=== PATIENT | male | born 1940 | race Caucasian/White ===

== ENCOUNTER 2020-07-22 12:00 | Emergency (ER) | payer OTHER ==
[~2020-07-22] VITALS: Ht 172.7 cm; Wt 81.6 kg
[~2020-07-22 12:00] MED LIST: AMBIEN5 MG PO; ANTIBIOTIC O500 U/GM TP; B-COMPLEX-501 CAP PO; B12,B-12,B 12500 MC1 PO; CARDIZEM CD120 MG PO; CARDOXIN0.25 MG PO; CORGARD20 MG PO; COUMADIN6 M1 PO; DILTIAZEM HCL60 M1 PO; DILTIAZEM30 MG PO; DOCUSATE SODIU100 M2 PO; Duoneb 3ML 3 MG/3 ML INH; FERROUS SULFAT325 M1 PO; FISH OIL 500MG500 MG PO; FOLIC ACID B PO; FOLIC ACID1 MG PO; HYDROCODONE BIT1 T11 PO; K + POTASSIUM20 MEQ PO; KEPPRA500 MG PO; LASIX40 MG PO; LEVAQUIN IV; LEVETIRACETAM500 MG PO; LEVOTHYROXINE0.1 MG PO; LEXAPRO20 MG PO; LISINOPRIL5 MG PO; NOVOLIN R100 U/ML SC; VITAMIN D1000 IU PO; XANAX0.25 MG PO; XOPENEX0.63 MG INH; XOPENEX0.63 MG NEB; ZOSYN 2.252.25 GM/50 IV; [UNRECOGNIZED DRUG - OTHER] PO; [UNRECOGNIZED DRUG - OTHER] PO
[2020-07-22 12:26] LABS: BASO % 0.4 % (0.0-1.0); EOS % 0.5 % (1.0-4.0); HEMATOCRIT 42.5 % (42.0-52.0); LYMPH # 1.4 10*3/uL (1.3-4.4); LYMPH % 19.8 % (27.0-41.0); MEAN CELL VOLUME 86.4 fl (80.0-94.0); MEAN CORPUSCULAR HGB 27.4 pg (27.0-31.0); MEAN CORPUSCULAR HGB CONC 31.8 g/dl (33.0-37.0); MEAN PLATELET VOLUME 10.8 fl (9.6-12.3); MONO # 0.7 10*3/uL (0.1-1.0); MONO % 9.5 % (3.0-9.0); NEUT # 5.1 10*3/uL (2.3-7.9); NEUT % 69.4 % (47.0-73.0); PLATELET COUNT AUTOMATED 154 10*3/uL (130-400); RED BLOOD COUNT 4.92 10*6/uL (4.50-5.90); RED CELL DISTRI WIDTH 15.6 % (0-14.5); WHITE BLOOD COUNT 7.3 10*3/uL (4.8-10.8)
[2020-07-22 12:40] VITALS: BP 113/71
[2020-07-22 12:40] LABS: ACT PARTIAL THROMBO TIME 35.3 SECONDS (20.0-32.1); INTERNATIONAL NORM RATIO 3.1 (2.0-3.5)
[2020-07-22 12:43] LABS: ALKALINE PHOSPHATASE 160 U/L (45-117); BUN 17 mg/dl (7-24); CHLORIDE 109 mmol/L (98-107); CREATININE 1.66 mg/dL (0.70-1.30); POTASSIUM 4.3 mmol/L (3.5-5.1); SGOT/AST 20 IU/L (3-35); SGPT/ALT 31 U/L (12-78); SODIUM 139 mmol/L (136-145); TOTAL PROTEIN 7.1 gm/dL (6.4-8.2)
[2020-07-22 12:45] LABS: TROPONIN I < 0.015 ng/ml (<0.045)
== END 2020-07-22 14:34 | disposition home or self-care (01) ==
LOC: ED 12:00
PROVIDERS: Emergency Medicine
DX: R55 Syncope and collapse (principal); E78.5 Hyperlipidemia, unspecified; Z88.8 Allergy status to other drugs, medicaments and biological substances; Z79.899 Other long term (current) drug therapy; Z79.4 Long term (current) use of insulin; Z79.01 Long term (current) use of anticoagulants